=== PATIENT | male | born 1965 ===

== ENCOUNTER 2023-08-06 11:22 | Outpatient (CLI) | payer OTHER | END 2023-08-06 11:40 | disposition home or self-care (01) | LOC: RAD 11:22 | PROVIDERS: ATTEND Orthopaedic Surgery | DX: M25.561 Pain in right knee (principal); M25.562 Pain in left knee; M25.511 Pain in right shoulder; M25.551 Pain in right hip; M25.552 Pain in left hip; S83.200A Bucket-handle tear of unspecified meniscus, current injury, right knee, initial encounter; S83.201A Bucket-handle tear of unspecified meniscus, current injury, left knee, initial encounter; E66.2 Morbid (severe) obesity with alveolar hypoventilation | CPT/HCPCS: 73721 ==